=== PATIENT | female | born 1945 | race Caucasian/White ===

== ENCOUNTER 2021-05-07 09:29 | Emergency (ER) | payer MEDICARE, SELFPAY ==
--- NOTE | 2021-05-07 09:37 | XRR_ITS ---
PROCEDURE INFORMATION: Exam: XR Left Ankle Exam date and time: 05/07/2021 9:37 AM Age: 75 years old Clinical indication: Pain; Swelling, leg or foot and swelling or effusion of joint; Ankle and foot; Left; Prior surgery TECHNIQUE: Imaging protocol: XR Left ankle. Views: 3 or more views. COMPARISON: No relevant prior studies available. FINDINGS: Bones/joints: A metal plates and multiple screws transfix old fractures of the distal fibula and medial malleolus. Position appears satisfactory. No recent fracture or other acute abnormalities are seen. Chronic degenerative changes are present in the ankle joint with joint space narrowing, sclerosis and small osteophytes. There is a plantar calcaneal spur. Soft tissues: Normal. XR/XR ankle LT min 3V* [id number] IMPRESSION: 1. Orthopedic hardware bridges old distal fibula and medial malleolar fractures. 2. Chronic degenerative disease. Radiation Dose CTDIVOL = (mGy): DLP = (mGy-cm)
[2021-05-07 09:40] VITALS: BP 180/106; PULSE 72; RESP 19; TEMP 36.8; O2SAT 99; BMI 32.8
--- NOTE | 2021-05-07 09:41 | ED_ITS ---
HPI - Extremity Injury (Lower) General: Chief Complaint: Fall Stated Complaint: L FOOT/ANKLE INJURY Time Seen by Provider: 05/07/21 09:36 History of Present Illness: HPI Narrative: 75-year-old female who presents to the emergency room with complaint of left great toe and left ankle pain. Previous history of fracture with ORIF repair. She was at home and fell, she describes an inversion-like injury to her left ankle. She also has some pain and swelling in the left great toe. On arrival here she has compression wrap and Miguel wrap on the ankle. She denies any other injuries. complaint: ankle injury and foot injury Type of Injury: blunt Place: home Severity: mild Relieving factors: NSAID, immobilization and rest Exacerbating factors: weight bearing Context: fall Associated symptoms: Reports swelling; Deny inability to bear weight, numbness or tingling Treatments prior to arrival: bandage (Compression wrap) Review of Systems Const: Denies: fever(s), chills, body aches, change in appetite, fatigue or malaise Card: Denies: chest pain, edema, dyspnea on exertion or orthopnea Resp: Denies: dyspnea, productive cough or non-productive cough Physical Exam Const: COMMON NORMALS: no acute distress GENERAL APPEARANCE: cooperative and comfortable ORIENTATION/CONSCIOUSNESS: Yes awake, Yes oriented to person, Yes oriented to place and Yes oriented to time HENMT: COMMON NORMALS: normocephalic, atraumatic and hearing grossly normal bilaterally HEAD & SCALP: normocephalic and atraumatic Extremity: COMMON NORMALS: normal to inspection, capillary refill normal, no clubbing, cyanosis or edema, no calf tenderness and no pedal edema OTHER: Limited range of motion due to previous surgery. There is some ecchymosis tereso und the great toe and around the calcaneus but there is no deformity no crepitus no pain with palpation of the medial or lateral malleoli Neuro: SENSORIUM/ORIENTATION: Yes oriented to person, Yes oriented to place and Yes oriented to time Skin: COMMON NORMALS: no rashes or lesions noted GENERAL SKIN EXAM: no rashes or lesions noted Course Vital Signs: Vital signs: Vital Signs Temperature 98.2 F 05/07/21 09:40 Pulse Rate 72 05/07/21 09:40 Respiratory Rate 19 H 05/07/21 09:40 Blood Pressure 180/106 05/07/21 09:40 Pulse Oximetry 99 05/07/21 09:40 MDM - Extremity Injury (Lower) MDM Narrative: Medical decision making narrative: Reviewed imaging with the patient. Recommend ice compression elevation can use anti-inflammatories as needed return if has further problems Discharge Plan Discharge Patient Disposition: Home Clinical Impression: Acute ankle pain, Acute foot pain Condition: Stable Prescriptions: New diclofenac sodium 75 mg tablet,delayed release (DR/EC) 75 mg PO Q12H PRN (Reason: pain) Qty: 20 RF: 0 Discharge Orders: Discharge ED (Routine); Ordered 05/07/21 Ordered By: Cheo Kelly Referrals: Damien Rebolledo MD [Primary Care Provider] - Patient Instructions: Opioid Safety Activity Restrictions/Additional Instructions: Weightbearing as tolerated ice and elevate ankle and foot whenever possible. Use anti-inflammatories as needed take with food. If not improving follow-up with your primary care doctor. Coding Level of Care Code ED [place] for Carmella Reid
--- NOTE | 2021-05-07 09:41 | XRR_ITS ---
PROCEDURE INFORMATION: Exam: XR Left Foot Exam date and time: 05/07/2021 9:41 AM Age: 75 years old Clinical indication: Pain; Swelling, leg or foot; Ankle and foot; Left; Prior surgery; Additional info: Pain swelling TECHNIQUE: Imaging protocol: XR Left foot. Views: 3 or more views. COMPARISON: CR XR ankle LT min 3V* [id number] 05/07/2021 9:46 AM FINDINGS: Bones/joints: No fracture or other acute abnormalities are seen in the foot. Scattered mild degenerative joint disease is present with joint space narrowing mild sclerosis and tiny osteophytes predominantly in the tarsal joints and 1st tarsometatarsal joint. Orthopedic hardware bridges old distal tibia and fibular fractures. Soft tissues: Normal. XR/XR foot LT min 3V* [id number] IMPRESSION: Mild degenerative disease in the foot. No acute abnormality. Radiation Dose CTDIVOL = (mGy): DLP = (mGy-cm)
== END 2021-05-07 10:29 | disposition home or self-care (01) ==
PROVIDERS: Emergency Provider Family Medicine; PCP Family Medicine
DX: M25.572 Pain in left ankle and joints of left foot (principal)
CPT/HCPCS: 73610; 73630; 99281

== ENCOUNTER 2021-07-11 10:21 | Emergency (ER) | payer MEDICARE, SELFPAY ==
[2021-07-11 10:38] VITALS: BP 207/99; PULSE 67; RESP 17; TEMP 36.4; O2SAT 99; BMI 33.6
[2021-07-11 10:54] VITALS: BP 176/97; RESP 18; O2SAT 97
--- NOTE | 2021-07-11 10:56 | XR_ITS ---
WS: [id number] RIGHT HIP HISTORY: fall/pain COMPARISON: 01/18/2019 Right hip: Limited quality evaluation of the hip. In part due to body habitus. Hip joint is narrowed with mild sclerosis. No definite fracture is identified. Extensive vascular calcifications. XR/XR hip RT 2-3V wo/w pel* [id number] IMPRESSION: 1. Limited technical quality evaluation. 2. No hip fracture is identified. If there is continued concern for fracture c onsider CT evaluation of the RIGHT hip.
--- NOTE | 2021-07-11 10:56 | PC.NURSE ---
Pt arrives via POV d/t falling July 08 d/t being clumsy. Pt rates pain in right hip 03/17 at this time worsening with movement. Pt has hx of falls with a broken left hip previously. Pt has not been seen previously for recent fall. Pt is ambulatory with increased pain. Pt's is at bedside.
--- NOTE | 2021-07-11 10:57 | ED_ITS ---
HPI - Fall General: Chief Complaint: Fall Stated Complaint: Fell, hip hurts but is able to walk but hurts bad Time Seen by Provider: 07/11/21 10:23 History of Present Illness: 75-year-old female presents emergency room she fell 4 days ago she has been ambulatory and weightbearing on it but she claims continued pain at her right hip previously she had a left hip arthroplasty done she did not strike her head did not lose consciousness denies any other injuries. MD complaint: fall Onset (ago): day(s) (4) Fall from: standing Fall witnessed: yes, by family Place fall occurred: home Loss of consciousness: None Prolonged down time: no Context: tripped/slipped Location of injury: other (Right hip) Associated symptoms-after fall: Denies abdominal pain, chest pain, confusion, difficulty walking, headache(s), hematuria, lightheadedness, neck pain, numbness, short of breath, vertigo or weakness Review of Systems Const: Denies: fever(s), chills, body aches, change in appetite, fatigue or malaise ENMT: Denies: throat pain, ear or mastoid pain, nasal discharge or nasal congestion Card: Denies: chest pain or lightheadedness Resp: Denies: dyspnea, productive cough or non-productive cough GI: Denies: abdominal pain : Denies: hematuria Musc: Denies: neck pain Skin/Breast: Denies: rash or pruritus Neuro: Denies: headache(s), difficulty walking, vertigo or confusion PFSH ED PFSH: Medical History (Updated 07/11/21 @ 11:59 by Cheo Kelly DO) Fracture of left lower leg Hypertension Obesity Surgical History (Updated 07/11/21 @ 11:58 by Cheo Kelly DO) History of arthroplasty of left hip Physical Exam Const: COMMON NORMALS: no acute distress GENERAL APPEARANCE: cooperative and comfortable ORIENTATION/CONSCIOUSNESS: Yes awake, Yes oriented to person, Yes oriented to place and Yes oriented to time HENMT: COMMON NORMALS: normocephalic, atraumatic and hearing grossly normal bilaterally HEAD & SCALP: normocephalic and atraumatic Neck/C-Spine: COMMON NORMALS: no JVD Resp: COMMON NORMALS: normal respiratory effort, No retractions, No use of accessory muscles and clear to auscultation bilaterally AUSCULTATION: clear to auscultation bilaterally Cardio: COMMON NORMALS: no JVD, regular rate, regular rhythm and No murmurs present (Cardio) RATE: regular rate RHYTHM: regular rhythm Extremity: COMMON NORMALS: normal to inspection, capillary refill normal, no clubbing, cyanosis or edema, no calf tenderness and no pedal edema OTHER: No pain at the right hip with internal and external rotation or flexion. Neuro: SENSORIUM/ORIENTATION: Yes oriented to person, Yes oriented to place and Yes oriented to time Skin: COMMON NORMALS: no rashes or lesions noted GENERAL SKIN EXAM: no rashes or lesions noted Course Vital Signs: Vital signs: Vital Signs Temperature 97.5 F L 07/11/21 10:38 Pulse Rate 67 07/11/21 10:38 Respiratory Rate 18 07/11/21 10:54 Blood Pressure 176/97 07/11/21 10:54 Pulse Oximetry 97 07/11/21 10:54 MDM - Fall Medical Decision Making Patient can flex and extend internally externally rotate at the knee without any significant discomfort. X-rays unremarkable. Continue diclofenac use as needed can use ice or heat follow-up as needed Lab Data Radiology Impressions Hip/Pelvis X-Ray 07/11/21 10:56 IMPRESSION: 1. Limited technical quality evaluation. 2. No hip fracture is identified. If there is continued concern for fracture consider CT evaluation of the RIGHT hip. Discharge Plan Discharge Patient Disposition: Home Clinical Impression: Fall, Acute hip pain Condition: Stable Prescriptions: No Action diclofenac sodium 75 mg tablet,delayed release (DR/EC) 75 mg PO Q12H PRN (Reason: pain) Qty: 20 0RF Discharge Orders: Discharge ED (Routine); Ordered 07/11/21 Ordered By: Cheo Kelly Referrals: Damien Rebolledo MD [Primary Care Provider] - Discharge Diet: Usual diet Discharge Activity: Increase activity as tolerated Patient Instructions: Opioid Safety Activity Restrictions/Additional Instructions: Tylenol and ibuprofen as needed ice to the affected area as needed follow-up with primary care doctor if not improving. You can continue to take the diclofenac for pain. If you take diclofenac do not take ibuprofen or Aleve. Coding Level of Care Code ED [employer] for Chg Fwd Exam Detailed
== END 2021-07-11 11:56 | disposition home or self-care (01) ==
PROVIDERS: Emergency Provider Family Medicine; PCP Family Medicine
DX: M25.551 Pain in right hip (principal); I10 Essential (primary) hypertension
CPT/HCPCS: 73502; 99282

== ENCOUNTER → 2021-08-14 09:03 | Outpatient (BNVA) | payer MEDICARE, SELFPAY | PROVIDERS: PCP Family Medicine; Referring Provider Family Medicine; Visit Provider Orthopaedic Surgery | DX: M16.11 Unilateral primary osteoarthritis, right hip (principal); M25.551 Pain in right hip | CPT/HCPCS: 73502 ==